=== PATIENT | male | born 1985 | race Caucasian/White ===

== ENCOUNTER 2019-09-04 01:43 | Emergency (ER) | payer SELFPAY ==
[~2019-09-04] VITALS: Ht 172.7 cm; Wt 73.0 kg
[2019-09-04] MEDS ORDERED: HALOPERIDOL LACTATE 5MG/ML VIAL IM ONE ×2 (02:59→03:00)
[2019-09-04] MEDS ORDERED: OLANZAPINE 10 MG/VIAL IM ONE ×2 (02:59→03:00)
[2019-09-04] MEDS ORDERED: LORAZEPAM 2MG/ML CPJ ONE (02:59)
[2019-09-04] MEDS ORDERED: LORAZEPAM 2MG/ML CPJ IM ONE (03:00)
[2019-09-04 05:52] LABS: *AMPHETAMINES SCREEN URINE PRESUMTIVE POSITIVE (NEGATIVE)
[2019-09-04 05:53] LABS: *BARBITURATES SCREEN URINE NEGATIVE (NEGATIVE); *BENZODIAZEPINES SCREEN URINE NEGATIVE (NEGATIVE); *COCAINE SCREEN URINE NEGATIVE (NEGATIVE); METHADONE URINE SCREEN NEGATIVE (NEGATIVE); OPIATES URINE SCREEN NEGATIVE (NEGATIVE); PHENCYCLIDINE URINE SCREEN NEGATIVE (NEGATIVE)
[2019-09-04 05:54] LABS: CANNABINOID URINE SCREEN NEGATIVE (NEGATIVE)
[2019-09-04 09:29] VITALS: BP 115/62
== END 2019-09-04 09:30 | disposition home or self-care (01) ==
LOC: ER 01:43
DX: F15.10 Other stimulant abuse, uncomplicated (principal); R45.1 Restlessness and agitation; F91.8 Other conduct disorders; Z78.1 Physical restraint status
CPT/HCPCS: 36415; 80305; 80320; 96372; 99283; J1630; J2060; J3490; Z7610; G0480